=== PATIENT | male | born 1990 | race Caucasian/White ===

== ENCOUNTER 2019-11-04 09:24 | Day surgery (SDC) | payer BC ==
[2019-11-04] MEDS: OXYMETAZOLINE HCL 0.05% 15ML NAS ONE ×4 (09:46→13:36)
[2019-11-04] MEDS ORDERED: Ringers Lactate 1,000 ML IV ONE ×2 (09:47→15:24)
[2019-11-04] MEDS ORDERED: MIDAZOLAM HCL 2 MG/2 ML INJ ONE (12:23)
[2019-11-04] MEDS ORDERED: dexAMETHasone 10 MG/ML VIAL ONE (12:23)
[2019-11-04] MEDS ORDERED: propofoL 200 MG/20 ML VIAL IV ONE (12:23)
[2019-11-04] MEDS ORDERED: ROCURONIUM 50 MG/5 ML VIAL IV ONE (12:24)
[2019-11-04] MEDS ORDERED: FENTANYL CITR 250 MCG/5 ML ONE (12:24)
[2019-11-04] MEDS ORDERED: LIDOCAINE 2% MPF 5 ML VIAL ONE (12:24)
[2019-11-04] MEDS ORDERED: OXYMETAZOLINE HCL 0.05% 15ML NAS ONE (12:30)
[2019-11-04] MEDS ORDERED: LIDOCAINE 1% MPF 30 ML VIAL ONE (12:30)
[2019-11-04] MEDS ORDERED: NA CHLORIDE 0.9% 500 ML ONE (12:30)
[2019-11-04] MEDS ORDERED: LIDOCAINE 1% W/EPI 1:100,000 MDV 20 ML VIAL ONE (12:33)
[2019-11-04] MEDS ORDERED: KETOROLAC 30 MG/ML INJ ONE (16:03)
[2019-11-04] MEDS ORDERED: ONDANSETRON 4 MG/2 ML VIAL ONE ×2 (16:04→16:57)
[2019-11-04] MEDS ORDERED: GLYCOPYRROLATE 0.2 MG/ML SYR ONE (16:04)
[2019-11-04] MEDS ORDERED: NEOSTIGMINE 1 MG/ML -5 ML ONE (16:04)
[2019-11-04] MEDS: HYDROMORPHONE HCL 1 MG/ML INJ ONE ×2 (16:56→17:10)
[2019-11-04] MEDS ORDERED: TRAMADOL HCL 50 MG TAB ONE (17:45)
[2019-11-04 19:19] VITALS: BP 143/78; TEMP 99; O2SAT 98
--- NOTE | 2019-11-04 23:07 | P.BOP ---
Preoperative diagnosis: CRS Postoperative diagnosis: same Primary procedure: NE with B max, ant eth, frontal. L BSP sphenoid. ITR ( cautery) Cemetery Keeper: NONE,NONE Estimated blood loss: see [facility] records Specimen: sinus contents Findings: L MM polyp, R max polyps Anesthesia: General Complications: None Implants: R FS mini, R FR contour, R max contour (Propel) Fluids & blood products: see [facility]. records Transferred to: Recovery Room Condition: Good
--- NOTE | 2019-11-05 22:11 | OP ---
Date of Procedure: 11/04/2019 Surgeon: Era Berger MD Healthcare Applications Analyst: None. Preoperative Diagnosis: Chronic rhinosinusitis. Postoperative Diagnosis: Chronic rhinosinusitis with nasal polyps. Procedure: Nasal endoscopy with: bilateral maxillary antrostomy with removal of maxillary sinus tissue on the right and bilateral anterior ethmoidectomy and bilateral frontal sinusotomy and left balloon dilation of the sphenoid sinus and inferior turbinate reduction by intramural cauterization, use of intraoperative CT navigation extradural/cranial. Implants: Propel steroid eluting stent to the right frontal sinus with a contour stent to the right frontal recess and to the right maxillary antrostomy. Complications: None. Indication For Procedure: Esteban Lopez has been having recurrent and chronic sinus complaints for several years. He previously underwent maximal medical therapy with post treatment CT scan showing mild findings. He was referred and underwent allergy testing which was negative. He later had significant multiple recurrences of his sinus infections and underwent additional maximal medical therapy with a CT demonstrating worsening sinus opacification of the ethmoid, maxillary and frontal sinuses with swelling obstructing the left sphenoid ostium, mild left septal deviation and inferior turbinate hypertrophy. The risks, benefits, and alternatives to the procedure were discussed with the patient who agreed to proceed. Description Of Procedure: The patient was brought to the operating room. He was placed under general anesthesia. The head of bed was turned 90 degrees. The [employer] headpiece was secured to the patient's forehead. The previously loaded CT scan was used to register the system using the laser pointer. After registration was confirmed and accuracy was felt to be very good by point-to- point matching including the tip of the nose, the base of the columella, the glabella and the medial and lateral canthi, the patient's nose was prepped in the following fashion. The nasal hairs were trimmed. The nasal cavity was packed with Afrin-soaked pledgets and preparations are made for endoscopic nasal surgery. The Entellus balloon device was prepared for use in accordance with glass toughening operator 's instructions under 0-degree endoscopic guidance. The device was passed through the nasal cavity and to the spheno-ethmoid recess. The device was passed through the sphenoid os and the balloon was inflated. It was left inflated for approximately 2 minutes. The balloon was then deflated and the device was removed. There was an insufficient swelling of the right sphenoid os to justify a procedural intervention. Attention was then turned to the maxillary sinuses. The middle turbinate was gently medialized. An Afrin-soaked pledget was placed within the middle meatus on the left side. A small polyp was noted within the middle meatus. The right uncinate was palpated using a maxillary seeker and removed using backbiter and 90-degree Blakesley. The ostium was significantly inflamed and edematous with polypoid mucosa. The antrostomy was enlarged using the 90-degree Blakesley and the microdebrider. A 30- and 70-degree endoscope were then used for better visualization. The ostium was enlarged. There were cystic and polypoid structures noted within the sinus. A maxillary Hueweiser, a deitq-qk-swwk Giraffe, and thuz-eu-cfpv Giraffe are used to remove polypoid tissue, polyps and cyst wall from the right maxillary sinus. Complete removal was limited by the reach of the instrumentation, but as much polyp tissue as feasible was removed. The middle meatus is packed with Afrin-soaked pledgets and attention was turned to the left side. The left nasal cavity was narrow, making dissection somewhat difficult. The decision was made to forego septoplasty at this time. The left uncinate process was removed using a backbiter and 90- degree Blakesley. The Natural ostium was moderate in size and the mucosa of the maxillary sinus is rather quiet without significant inflammation or infection or evidence of polyp formation. Afrin-soaked pledgets were applied and attention was returned to the right side. A 0 and 30-degree endoscope was used to dissect the anterior ethmoid partitions. The image guidance was used to identify the lamina and the anterior skull base as well as direct dissection within the frontal recess. Bony partitions were removed using the straight 45 and 90-degree Blakesley. The 70 degree endoscope was then used for further dissection into the frontal recess. The frontal sinus was confirmed by passing the Entellus balloon device with its LAD catheter and through the developed recess and confirming bright illumination of the frontal sinus. The image guidance system was also used to confirm adequate dissection of the frontal recess. Afrin-soaked pledgets were applied and attention was turned to the left side. A similar procedure was performed on the left with dissection of the anterior ethmoid cells, using a curette, a straight Blakesley 45 degree Blakesley, and 90-degree Blakesley. The frontal sinus was somewhat difficult to identify due to polypoid tissue inflammation and oozing from this region. The Entellus balloon device was configured for use in the frontal recess and was used to explore after dilation. The bony partitions were removed and the frontal recess and frontal sinus were well eliminated with the balloon device. Afrin-soaked pledgets were applied to this region and attention was turned to the inferior turbinates. The Bovie electrocautery was fitted with an unprotected needlepoint Bovie and the full length of the probe was passed into the intramural soft tissues of the right and left inferior turbinates and used to perform intramural cauterization of the soft tissues. Four passes were performed in each of the inferior turbinates. The Afrin-soaked pledgets were then all removed and the count was confirmed as correct. The Propel mini steroid eluting stent was then loaded and placed under endoscopic guidance into the frontal sinus to provide local drug delivery and decrease swelling within the mucosa. An additional Propel Contour steroid eluting stent was then placed across the frontal recess to prevent scarring and restenosis in this region. A second Propel Contour steroid eluting stent was placed under endoscopic guidance into the right maxillary antrostomy to allow for localized drug delivery and prevent restenosis of this site. The nasal cavity was thoroughly irrigated with sterile saline. After careful suctioning, there was moderate oozing within the left ethmoid cavity and a Xerogel dissolvable sinus dressing was placed under endoscopic guidance into the left ethmoid cavity. After several minutes, the area was noted to be hemostatic. The pledget count was again confirmed and was correct. The patient 's orogastric tube was then suction for removal of stomach contents. There was minimal to no blood noted within the stomach and mild blood coming from the oropharynx as expected. The patient was then returned to care of anesthesia for awakening, extubation in the operating room, which proceeded without difficulty. Complications: None. Disposition: The patient will be discharged home later today. Follow up with Dr. Berger in 7-14 days for evaluation of healing and consideration for additional medical management. Specimens: Sinonasal contents. Discharge Medications: Include tramadol p.r.n. pain as well as doxycycline and prednisone 20 mg p.o. daily for 7 days. SHARON/MODL Voice ID: [id number] Report ID: [id number] GRACE
== END 2019-11-04 19:13 | disposition home or self-care (01) ==
LOC: OR 09:24
PROVIDERS: ATTEND Otolaryngology
PROC: 099Q7ZZ Drainage of Right Maxillary Sinus, Via Natural or Artificial Opening (ICD-10-PCS; principal; 2019-11-04 11:15)
DX: K04.7 Periapical abscess without sinus (principal); J32.1 Chronic frontal sinusitis; J32.2 Chronic ethmoidal sinusitis; J32.0 Chronic maxillary sinusitis; Z91.19 Patient's noncompliance with other medical treatment and regimen; Z87.891 Personal history of nicotine dependence
CPT/HCPCS: 87070; 87205; 88304; 88311; 87077; 87186; 31267; 31297; J2704; J2250; J3010; J1100; J1170; J2710; J7120 ×2; J7040; J2405 ×2

== ENCOUNTER 2024-03-18 08:28 | Day surgery (SDC) | payer BC ==
[2024-03-18] MEDS: Ringers Lactate 1,000 ML IV ONE (08:45)
[2024-03-18] MEDS ORDERED: LIDOCAINE 2% MPF 5 ML VIAL ONE (09:23)
[2024-03-18] MEDS ORDERED: FENTANYL CITR 100 MCG/2 ML ONE (09:23)
[2024-03-18] MEDS ORDERED: propofoL 200 MG/20 ML VIAL IV ONE (09:23)
[2024-03-18] MEDS ORDERED: MIDAZOLAM HCL 2 MG/2 ML INJ ONE (09:23)
[2024-03-18] MEDS ORDERED: ROCURONIUM 50 MG/5 ML VIAL IV ONE (09:23)
[2024-03-18] MEDS ORDERED: ONDANSETRON 4 MG/2 ML VIAL ONE (09:23)
[2024-03-18] MEDS ORDERED: HYDROMORPHONE HCL 2 MG/ML inj ONE (09:39)
[2024-03-18] MEDS: CEFAZOLIN SODIUM 2 GM/VIAL ONE (10:25)
[2024-03-18] MEDS ORDERED: dexAMETHasone 10 MG/ML VIAL ONE (10:27)
[2024-03-18] MEDS: LIDOCAINE HCL/EPINEPHRINE 20 ML MDV ONE (10:41)
--- NOTE | 2024-03-18 11:47 | P.OP ---
Preoperative diagnosis: Umbilical Hernia Postoperative diagnosis: Umbilical Hernia Primary procedure: Laparoscopic Umbilical Hernia Repair with mesh Anesthesia: GETA + Local Estimated blood loss: <5cc Specimen: hernia contents - adiopose Findings: incarcerated pre-peritoneal adipose Complications: None Implants: Bard 11.4cm Ventralite ST round mesh, sorbafix x 30, absorbatac 30x Transferred to: Recovery Room Condition: Good
[2024-03-18] MEDS: HYDROMORPHONE HCL 1 MG/ML INJ ONE ×2 (11:59→12:15)
[2024-03-18] MEDS: HYDROCODONE/APAP 10/325 TAB ONE (13:15)
[2024-03-18 14:24] VITALS: BP 127/82; TEMP 97.7; O2SAT 100
--- NOTE | 2024-03-18 16:57 | EKG ---
Test Date: 2024-03-16 Test Time: 13:17:32 Steam Shovelman: GABE MEASUREMENT RESULTS: Intervals: Rate: 67 UT: 122 QRSD: 88 QT: 356 QTc: 376 [place]: P: 52 UT: 122 QRS: 73 T: 75 INTERPRETIVE STATEMENTS: Normal sinus rhythm Normal ECG Compared to ECG 12/02/2004 09:51:00 Early repolarization no longer present Electronically Signed On 03-18-24 16:50:13 CDT by Aftab Damon
--- NOTE | 2024-03-18 22:18 | OP ---
Date of Procedure: 03/18/2024 Surgeon: Omer Medina MD, Preoperative Diagnosis: Umbilical hernia. Postoperative Diagnosis: Umbilical hernia. Procedure Performed: Laparoscopic umbilical hernia repair with mesh. Anesthesia: General endotracheal plus local with 1% lidocaine with epinephrine. Estimated Blood Loss: Less than 5 cc. Specimens: Hernia contents which is adipose tissue. Findings: Incarcerated preperitoneal adipose containing hernia approximately 1.5 cm in size. Complications: None. Implants: Bard Ventralight 11.4 cm round Ventralight mesh with ST positioning, Echo Positioning Syst em and SorbaFix absorbable fixation tacks x30 and AbsorbaTack Bard 30X Tacker. Disposition: The patient transferred to recovery room in good condition. Procedure In Detail: After informed consent was obtained, the patient was brought to the operating r oom, prepped and draped in the usual sterile fashion. After adequate anesthesia was achieved, I anes thetized an area of the left upper quadrant down to subcutaneous tissue. A 5 mm 0-degree optical tro car was introduced into the abdomen without incident or complication. Insufflation was obtained to 1 5 mmHg, at this time. There was no injury to vital structures upon entry into the abdomen. Addition al trocar was placed in the left mid abdomen. This was a 12 mm trocar placed under direct visualizat ion without incident or complication. Insufflation was obtained to 15 mmHg and maintained throughout the procedure. At this point, I used the LigaSure device to take down the preperitoneal fat and pre peritoneal adipose tissue incarcerated within the umbilical hernia and removed it through the 12 mm t rocar after being stripped back and ligated at this point using the LigaSure device, and placed it in EndoCatch bag and it was removed through the 12 mm trocar. At this point, I sized the mesh appropri ately and 11.4 cm Bard Ventralight mesh with Echo Positioning System was brought to the field. I use d the Endo Stitch with 0 V-Loc suture to close and imbricate the hernia sac and closed it with good a pposition of the tissues. At this point, I then deployed the 11.[address] mesh with E cho Positioning System in the central portion of the defect and then secured it with a single crown o f SorbaFix absorbable fixation tacks, a total of 30 tacks were used. The balloon deployment system w as removed. I then deployed a total of Bard AbsorbaTack 30X tacks. Total 20 tacks used on this syst em for double crown type orientation with good apposition of mesh to the abdominal wall. There was n o hemostatic maneuvers required, at this point. The balloon deployment system was found to be intact on the back table. I then closed the 12 mm trocar site using a Brett-Shanti suture passer with a n 0 Vicryl in an interrupted fashion, good approximation of tissues and then desufflated the abdomen under direct visualization without incident or complication. Remaining trocars were all irrigated an d closed with a 4-0 Monocryl in a running fashion and Dermabond was placed over top. The patient yousif erated the procedure well without incident or complication, transferred to the PACU in good condition . All counts were correct at the end of the case. TASHIA/CLINT Voice ID: [id number] Report ID: [id number]
== END 2024-03-18 13:55 | disposition home or self-care (01) ==
LOC: OR 08:28
PROVIDERS: ATTEND Surgery
PROC: 0WUF4JZ Supplement Abdominal Wall with Synthetic Substitute, Percutaneous Endoscopic Approach (ICD-10-PCS; principal; 2024-03-18 11:00)
DX: K42.0 Umbilical hernia with obstruction, without gangrene (principal)
CPT/HCPCS: 93005; 80048; 36415; 88302; 49592; J2704; J2001; J2250; J1170 ×3; J3010; J1100; J2405; J7120; C1781